=== PATIENT | female | born 1990 | race Caucasian/White ===

== ENCOUNTER 2017-05-31 10:58 | Emergency (ER) | payer MEDICAID, OTHER ==
[~2017-05-31] VITALS: Ht 162.6 cm; Wt 75.0 kg
[2017-05-31] MEDS ORDERED: ONDANSETRON 4MG ODT PO STA (14:33)
[2017-05-31] MEDS ORDERED: FAMOTIDINE 20MG TABLET PO ONE (14:45)
[2017-05-31] MEDS ORDERED: TRAMADOL 50MG TABLET PO ONE (14:45)
[2017-05-31 15:00] LABS: BASOPHILS % 1.1 % (0.0-2.0); EOSINOPHILS % 0.7 % (0.0-5.0); HEMATOCRIT. 37.7 % (36.0-48.0); HEMOGLOBIN. 12.5 g/dL (12.0-16.0); LYMPHOCYTES % 25.6 % (20.0-50.0); MEAN CORPUSCULAR HEMOGLOBIN 27.9 pg (28.0-32.0); MEAN CORPUSCULAR VOLUME 84.1 fL (81.0-99.0); NEUTROPHILS % 66.6 % (40.0-76.0); PLATELET 236 x1000/uL (130-400); RED BLOOD CELL COUNT 4.48 mill/uL (4.2-5.4); RED CELL DISTRIBUTION WIDTH 13.5 % (11.6-14.6)
[2017-05-31 15:11] LABS: CHLORIDE 105 mEq/L (98-107)
[2017-05-31 15:18] LABS: CARBON DIOXIDE 26 mEq/L (21-32)
[2017-05-31 16:38] LABS: CLARITY URINE CLOUDY (CLEAR); COLOR URINE YELLOW (YELLOW); KETONES URINE NEGATIVE (NEGATIVE); LEUKOCYTE ESTERASE URINE NEGATIVE (NEGATIVE); NITRITE URINE NEGATIVE (NEGATIVE); OCCULT BLOOD URINE NEGATIVE (NEGATIVE); PROTEIN URINE NEGATIVE (NEGATIVE); SPECIFIC GRAVITY URINE 1.025 (1.005-1.030); UROBILINOGEN URINE 0.2 E.U./dL (0.2-1.0)
[2017-05-31 19:35] VITALS: BP 112/74
== END 2017-05-31 19:35 | disposition home or self-care (01) ==
LOC: ER 12:15
DX: N83.201 Unspecified ovarian cyst, right side (principal); N39.0 Urinary tract infection, site not specified
CPT/HCPCS: 36415; 76705; 76830; 76856; 80053; 81001; 81025; 83690; 85025; 99285; Q0162

== ENCOUNTER 2018-01-18 16:00 | Emergency (ER) | payer MEDICAID, OTHER ==
[~2018-01-18] VITALS: Ht 157.5 cm; Wt 70.0 kg
[2018-01-18] MEDS ORDERED: ACETAMINOPHEN 325MG TABLET PO STA (21:26)
[2018-01-18] MEDS ORDERED: ALBUTEROL (0.083%) 2.5MG/3ML NEB HHN STA (21:26)
[2018-01-18] MEDS ORDERED: ONDANSETRON HCL 4MG TABLET PO ONE (21:45)
[2018-01-18 22:02] LABS: CLARITY URINE CLOUDY (CLEAR); COLOR URINE YELLOW (YELLOW); KETONES URINE 1+ (NEGATIVE); LEUKOCYTE ESTERASE URINE 2+ (NEGATIVE); NITRITE URINE NEGATIVE (NEGATIVE); OCCULT BLOOD URINE TRACE (NEGATIVE); PROTEIN URINE TRACE (NEGATIVE); SPECIFIC GRAVITY URINE 1.032 (1.005-1.030)
[2018-01-18 22:30] VITALS: BP 120/71
== END 2018-01-18 22:58 | disposition home or self-care (01) ==
LOC: ER 17:24
DX: J02.9 Acute pharyngitis, unspecified (principal)
CPT/HCPCS: 71045; 81003; 81025; 87070; 87430; 94640; 99285; J7611; Q0162

== ENCOUNTER 2018-09-10 14:07 | Emergency (ER) | payer MEDICAID ==
[~2018-09-10] VITALS: Ht 160 cm; Wt 77.0 kg
[2018-09-10] MEDS ORDERED: ONDANSETRON HCL 4MG/2ML INJ IV STA (19:11)
[2018-09-10] MEDS ORDERED: SODIUM CHLORIDE 0.9% 1,000 ML IV ONE (19:11)
[2018-09-10] MEDS ORDERED: KETOROLAC 30MG/ML VIAL IV STA (19:11)
[2018-09-10] MEDS ORDERED: LORAZEPAM 2MG/ML CPJ IV ONE (19:15)
[2018-09-10 19:28] LABS: BASOPHILS % 0.6 % (0.0-2.0); EOSINOPHILS % 0.7 % (0.0-5.0); HEMATOCRIT. 40.4 % (36.0-48.0); HEMOGLOBIN. 13.9 g/dL (12.0-16.0); LYMPHOCYTES % 30.2 % (20.0-50.0); MEAN CORPUSCULAR HEMOGLOBIN 29.3 pg (28.0-32.0); MEAN CORPUSCULAR VOLUME 85.3 fL (81.0-99.0); MEAN PLATELET VOLUME 10.8 fl (7.4-10.4); MONOCYTES % 5.1 % (2.0-8.0); NEUTROPHILS % 63.4 % (40.0-76.0); PLATELET 205 x1000/uL (130-400); RED BLOOD CELL COUNT 4.74 mill/uL (4.2-5.4); RED CELL DISTRIBUTION WIDTH 13.5 % (11.6-14.6)
[2018-09-10 19:29] LABS: CLARITY URINE CLOUDY (CLEAR); COLOR URINE YELLOW (YELLOW); KETONES URINE NEGATIVE (NEGATIVE); LEUKOCYTE ESTERASE URINE 3+ (NEGATIVE); NITRITE URINE NEGATIVE (NEGATIVE); OCCULT BLOOD URINE NEGATIVE (NEGATIVE); PROTEIN URINE NEGATIVE (NEGATIVE); SPECIFIC GRAVITY URINE 1.025 (1.005-1.030); UROBILINOGEN URINE 0.2 E.U./dL (0.2-1.0)
[2018-09-10 19:31] LABS: CHLORIDE 104 mEq/L (98-107)
[2018-09-10 19:34] LABS: ETHANOL BLOOD < 10 mg/dL
[2018-09-10 19:37] LABS: D-DIMER 0.22 mg/L FEU (<0.50); PARTIAL THROMBOPLASTIN TIME 35.5 sec (23.4-31.0); PROTHROMBIN TIME 10.6 sec (9.6-11.0)
[2018-09-10 19:48] LABS: *AMPHETAMINES SCREEN URINE NEGATIVE (NEGATIVE); *BARBITURATES SCREEN URINE NEGATIVE (NEGATIVE); *BENZODIAZEPINES SCREEN URINE NEGATIVE (NEGATIVE); CANNABINOID URINE SCREEN NEGATIVE (NEGATIVE); METHADONE URINE SCREEN NEGATIVE (NEGATIVE); OPIATES URINE SCREEN NEGATIVE (NEGATIVE); PHENCYCLIDINE URINE SCREEN NEGATIVE (NEGATIVE)
[2018-09-10 19:49] LABS: HCG SCREEN NEGATIVE
[2018-09-10 19:49] LABS: *COCAINE SCREEN URINE NEGATIVE (NEGATIVE)
[2018-09-10] MEDS ORDERED: METOCLOPRAMIDE HCL 10MG/2ML VIAL IV ONE (21:45)
[2018-09-10] MEDS ORDERED: MAGNESIUM/ALUMINUM HYDROXIDE/SIMETHICONE 30ML UDC PO ONE (21:45)
[2018-09-10] MEDS ORDERED: FAMOTIDINE 20MG/2ML VIAL IV ONE (21:45)
[2018-09-10 23:28] VITALS: BP 98/54
== END 2018-09-10 23:30 | disposition home or self-care (01) ==
LOC: ER 15:13
DX: K21.9 Gastro-esophageal reflux disease without esophagitis (principal); N39.0 Urinary tract infection, site not specified; K20.9 Esophagitis, unspecified; R07.89 Other chest pain
CPT/HCPCS: 36415; 71045; 80053; 80305; 80320; 81003; 81025; 83690; 83880; 84484; 84703; 85025; 85379; 85610; 85730; 93005; 96374; 96375; 99284; J1885; J2060; J2405; J2765; J3490; J7030; Z7610; G0480

== ENCOUNTER 2020-08-31 20:03 | Emergency (ER) | payer MEDICAID ==
[~2020-08-31] VITALS: Ht 157.5 cm; Wt 81.0 kg
[2020-08-31 23:15] LABS: CLARITY URINE CLOUDY (CLEAR); COLOR URINE YELLOW (YELLOW); KETONES URINE NEGATIVE (NEGATIVE); LEUKOCYTE ESTERASE URINE 2+ (NEGATIVE); NITRITE URINE NEGATIVE (NEGATIVE); OCCULT BLOOD URINE 2+ (NEGATIVE); PH URINE 5.5 (4.5-8.0); PROTEIN URINE NEGATIVE (NEGATIVE); UROBILINOGEN URINE 0.2 E.U./dL (0.2-1.0)
[2020-08-31] MEDS ORDERED: METOCLOPRAMIDE HCL 10MG TABLET PO ONE (23:45)
[2020-08-31 23:59] LABS: BASOPHILS % 0.9 % (0.0-2.0); EOSINOPHILS % 3.1 % (0.0-5.0); HEMATOCRIT. 37.5 % (36.0-48.0); HEMOGLOBIN. 12.9 g/dL (12.0-16.0); LYMPHOCYTES % 34.3 % (20.0-50.0); MEAN CORPUSCULAR HEMOGLOBIN 28.7 pg (28.0-32.0); MEAN CORPUSCULAR VOLUME 83.6 fL (81.0-99.0); MEAN PLATELET VOLUME 10.6 fl (7.4-10.4); MONOCYTES % 5.7 % (2.0-8.0); PLATELET 237 x1000/uL (130-400); RED BLOOD CELL COUNT 4.49 mill/uL (4.2-5.4); RED CELL DISTRIBUTION WIDTH 13.1 % (11.6-14.6)
[2020-09-01 00:11] LABS: CHLORIDE 105 mEq/L (98-107)
[2020-09-01 00:16] LABS: HCG SCREEN NEGATIVE
[2020-09-01] MEDS ORDERED: CEPH500C2 MT (02:11)
[2020-09-01] MEDS ORDERED: METO5TAB94 MT (02:11)
[2020-09-01 02:23] VITALS: BP 131/71
== END 2020-09-01 02:24 | disposition home or self-care (01) ==
LOC: ER 20:03
DX: K21.9 Gastro-esophageal reflux disease without esophagitis (principal); N39.0 Urinary tract infection, site not specified; Z98.890 Other specified postprocedural states; Z79.899 Other long term (current) drug therapy
CPT/HCPCS: 36415; 80053; 81003; 81025; 83690; 84703; 85025; 93005; 99284; J8597